=== PATIENT | female | born 1995 | race American Indian/Alaskan Native ===

== ENCOUNTER 2016-04-19 21:53 | Outpatient (CLI) | payer MEDICAID ==
[2016-04-19 22:24] VITALS: BP 119/70
[2016-04-19] MEDS ORDERED: LACTATED RINGERS 500 ML IV ONE (22:41)
--- NOTE | 2016-04-22 09:34 | Ultrasound Report ---
OB ULTRASOUND: TECHNIQUE: Transabdominal ultrasound with Doppler interrogation. Gestation: morales Position: Transverse Head Maternal LT. Amniotic Fluid: WNL (7-24 cm) JOSI = 13.0 cm Placenta: posterior Placental Grade: 0 Heart Rate: 160 BPM Cervical length: 3.7 cm (Normal > 3 cm) BPD: 7.0 cm = 28 w 1 d HC: 26.7 cm = 29 w 0 d AC: 23.8 cm = 28 w 0 d FL: 5.5 cm = 29 w 1 d HC/AC Ratio: 1.12 Estimated Weight: 1251 grams LMP: uncertain US Gest. Age = 28 w 4 d EDC: 07-08-17
== END 2016-04-19 23:45 | disposition home or self-care (01) ==
LOC: TRG 21:53
PROVIDERS: ATTEND Obstetrics & Gynecology Gynecology
DX: O47.03 False labor before 37 completed weeks of gestation, third trimester (principal); Z3A.28 28 weeks gestation of pregnancy
CPT/HCPCS: 59025; 76816

== ENCOUNTER 2016-07-03 10:12 | Inpatient (IN) | payer MEDICAID ==
[2016-07-03] MEDS ORDERED: LACTATED RINGERS 1,000 ML ONE ×2 (10:37→11:26)
[2016-07-03] MEDS ORDERED: PITOCin/NS 20 UNIT/1000ML DRIP 20,000 MILLIUNITS/1,000 ML BAG IV ONE (11:26)
[2016-07-03] MEDS ORDERED: XYLOCAINE 2% INFILTRATI ONE (11:36)
--- NOTE | 2016-07-03 12:09 | History and Physical Report ---
History of Present Illness Date of examination: 07/03/16 (pt presented to Triage with c/o ctx starting @ 0700) Date of admission: 07/03/16 11:28 History of present illness: EDC Calculations LMP: 07/05/2017 Initial exam (date): 01/25/2016 = 16 Exam: 07/06/2016 Past History : 1 Term Births: 0 Premature Births: 0 Living Children: 0 Para: 0 Mult. Births: 0 Prev : 0 Prev. attempt? 0 Aborta: 0 Elect. Ab: 0 Spont. Ab: 0 Ectopics: 0 Past Medical History: Negative Past Medical History Past Surgical History: Negative Past Surgical History Family History Summary: Other family member - Has No Family History of Ovarvian Cancer - Entered On: 12/2016 Other family member - Has No Family History of Colon Cancer - Entered On: 2016 Other family member - Has No Family History of Breast Cancer - Entered On: 2016 Other family member - Has Family History of Hypertension - Entered On: 06/05/2016 Social History: Patient is single Risk Factors: Smoked Tobacco Use: Never smoker Drug use: yes Substance: marijuana Alcohol use: no Dietary Counseling: pn yes Past Medical History Surgery (Non-checkman): Negative Past Surgical History Abnormal PAP: negative Uterine Anomaly: negative Social Hx: Patient is single Infection History Hx of STD: chlamydia Personal hx. of genital herpes: no Genetic History Congenital Heart Defect: Mom: no Dad: no Sarah Disease: Mom: no Dad: no Thalassemia Mom: no Dad: no Neural Tube Defect Mom: no Dad: no Down's Syndrome Mom: no Dad: no Ron-Sachs Mom: no Dad: no Sickle Cell Disease/Trait Mom: no Dad: no Hemophilia Mom: no Dad: no Muscular Dystrophy Mom: no Dad: no Cystic Fibrosis Mom: no Dad: no [place] Chorea Mom: no Dad: no Mental Retardation Mom: no Dad: no Fragile X Mom: no Dad: no Other Genetic/Chromosomal Disorder Mom: no Dad: no Child w/other defect Mom: no Dad: no Active Medications: VITAMINS TABS ( MV & MIN W/FE-FA TABS) Current Allergies (reviewed today): No known allergies Laboratory Results Date/Time Collected: 05/31/2016 Urine HCG: positive Review of Systems General Complains of fatigue. Denies fever, chills, sweats, anorexia, weakness, malaise, weight loss and sleep disorder. Complains of pelvic pain. Denies vaginal discharge, incontinence, dysuria, hematuria, urinary frequency, amenorrhea, menorrhagia, abnormal vaginal bleeding, genital sores, decreased libido, painful periods, painful sex, urinary urgency, hot flashes, vaginal dryness, vaginal itching and vaginal odor. CV Denies chest pains, palpitations, syncope, dyspnea on exertion, orthopnea, PND and peripheral edema. Resp Denies cough, dyspnea at rest, excessive sputum, hemoptysis, wheezing and pleurisy. GI Complains of abdominal pain. Denies nausea, vomiting, diarrhea, constipation, change in bowel habits, melena, hematochezia, jaundice, gas/bloating, indigestion/heartburn, dysphagia and odynophagia. Breast Denies left breast lump, right breast lump, nipple discharge, bloody discharge from nipple, breast pain, abnormal mammogram and breast enlargement. MS Complains of back pain. Psych Denies depression, anxiety, irritability and mood swings. PHYSICAL EXAM HEENT: normocephalic, no lesions or deformities Neck/Thyroid: supple, thyroid normal Skin no significant abnormal lesions or rashes Chest: respiratory effort normal, clear to auscultation Breasts: skin/areolae normal, no masses, no nipple discharge, no erythema/warmth /tenderness, and axillae normal. CV: regular, normal S1-S2, no murmur, no rub, no gallop Abdomen: normal bowel sounds, soft, nontender, no HSM Musculoskeletal: grossly normal ROM in joints, no joint tenderness or muscle weakness Neuro: no gross anomalities Extremities: no clubbing, cyanosis, or edema Past History - Obstetrical History Expected Date of Delivery: 07/05/16 Actual Gestation: 39 Week(s) 5 Day(s) : 1 Para: 0 Hx # Term Pregnancies: 0 Number of Living Children: 0 Medications and Allergies Allergies Allergy/AdvReac Type Severity Reaction Status Date / Time No Known Allergies Allergy Verified 07/03/16 10:20 Home Medications Medication Instructions Recorded Confirmed Last Taken Type No Known Home Medications [No 07/03/16 07/03/16 Unknown History Reported Home Medications] - Vital Signs Vital signs: Vital Signs Pulse Pulse Ox 105 H 100 07/03/16 10:19 07/03/16 10:19 Temp Pulse Resp BP Pulse Ox 97.5 F L 73 20 174/82 98 07/03/16 11:40 07/03/16 11:58 07/03/16 10:27 07/03/16 11:58 07/03/16 11:34 - Physical Exam Breasts: Positive: deferred Cardiovascular: Regular rate, Normal S1, Normal S2 Lungs: Positive: Normal air movement Abdomen: Positive: normal appearance, soft, normal bowel sounds. Negative: distention, tenderness Genitourinary (Female): Positive: normal external genitalia Vulva: both: normal Vagina: Positive: normal moisture. Negative: discharge Cervix: Negative: lesion, discharge Uterus: Positive: normal size, normal contour Adnexa: both: normal Anus/Rectum: Positive: normal perianal skin, heme negative. Negative: rectal mass, hemorrhoids Extremities: Positive: normal Deep Tendon Reflex Grade: Normal +2 - Obstetrical FHR: category 2 Uterine Contraction Monitor Mode: External Cervical Dilatation: 2 (on arrival to Triage) Uterine Contraction Pattern: Regular Uterine Contraction Intensity: Moderate (pt out of control) Results All other labs normal. Laboratory Data-Patient Name: JUAN HEATON Test Date Result Blood Type 12/25/2015 B Rh 12/25/2015 positive Antibody Screen negative Rubella 12/25/2015 IMMUNE Serology (RPR) 06/12/2016 NR HBsAg Negative Hemoglobin 12/25/2015 11.1 Hematocrit Platelets Chlamydia DNA 06/04/2016 Negative GC DNA/Culture 06/04/2016 Urine Culture Group B Strep cult negative PAP HIV 06/12/2016 AFP/Quad Screen Glucola Test 3hr GTT (Fasting) 1 hr 2 hr 3 hr [facility]-Patient Name:JUAN HEATON Test Date Result Varicella Ab Sickle Cell 12/25/2015 negative PPD Fibronectin Cystic Fibrosis Parvovirus TSH Free T4 Hepatitis C ALT AST Uric Acid Creatinine 24 hr Urine Protein APURVA Assessment and Plan SVE 2 on arrival with in 1 hour pt's exam 9,100,0 Orders in EMR
[2016-07-03] MEDS ORDERED: ePHEDrine SULFATE IV PRN (12:19)
[2016-07-03] MEDS ORDERED: MINERAL OIL PO PRN (12:19)
--- NOTE | 2016-07-03 12:19 | Procedure Note ---
OB Delivery Note - Delivery Date of Delivery: 07/03/16 Clinical Nurse Occupational Medicine: JENI ALFREDO Estimated blood loss: 300cc - Vaginal Delivery presentation: vertex Delivery position: OA Intrapartum events: meconium, precipitous labor- <3hr, mult.variable deceleratio Delivery induction: none Delivery monitor: external FHT, external uterine Route of delivery: Delivery placenta: spontaneous Delivery cord: nuchal cord (X 2 reduced) Episiotomy: none Delivery laceration: none Anesthesia: none Delivery comments: Called urgently to LDR Pt SVE 9,100,0 Arrived with pt having the urge to push. Noted thick meconium, NICU called to room. Straight cath done Specimen to lab live born male CAN X 2 reduced, to warmer. NICU waiting. Cord blood obtained. Placenta and membrane del complete and intact, 3 vessel cord. Placenta to pathology. 8/9, EBL 300, Wgt 5-8 Pit IVFs. Mom and baby remain LDR stable - A at 1 minute: 8 (wgt 5-8) at 5 minutes: 9 Infant Gender: Male (wgt)
--- NOTE | 2016-07-03 12:19 | Ultrasound Report ---
LIMITED OB ULTRASOUND: Gestation: morales Position: cephalic Placenta: lt. lat. Placental Grade: 2 Heart Rate: 120 BPM No evidence of retro-or intraplacental hemorrhage. Estimated gestational age is 39 weeks 5 days.
[2016-07-03 12:23] LABS: Urine Drugs of Abuse Note Disclamer
[2016-07-03] MEDS ORDERED: PHENERGAN PO PRN (12:29)
[2016-07-03] MEDS ORDERED: DULCOLAX PR PRN (12:29)
[2016-07-03] MEDS ORDERED: TYLENOL PO PRN (12:29)
[2016-07-03] MEDS ORDERED: LANSINOH TP PRN (12:29)
[2016-07-03] MEDS ORDERED: MILK OF MAGNESIA PO PRN (12:29)
[2016-07-03] MEDS ORDERED: BENADRYL PO PRN (12:29)
[2016-07-03] MEDS ORDERED: ZOFRAN IV PRN (12:29)
[2016-07-03] MEDS ORDERED: TUCKS PAD TP PRN (12:29)
[2016-07-03] MEDS ORDERED: DERMOPLAST TP PRN (12:35)
[2016-07-03] MEDS: MOTRIN PO SCH ×3 (12:58→23:48)
[2016-07-03] MEDS ORDERED: LACTATED RINGERS 1,000 ML IV SCH (13:00)
[2016-07-03] MEDS ORDERED: SODIUM CHLORIDE FLUSH SYRINGE 10 ML IV SCH (13:00)
[2016-07-03] MEDS ORDERED: PITOCin/NS 20 UNIT/1000ML DRIP 20 UNITS/1,000 ML BAG IV SCH (13:00)
[2016-07-03 13:51] LABS: Hematocrit 32.8 % (30.3-42.9); Hemoglobin 10.6 gm/dl (10.1-14.3); Mean Corpuscular HGB Conc 32 % (30-34); Mean Corpuscular Hemoglobin 26 pg (28-32); Mean Corpuscular Volume 80 fl (79-97); Platelet Count 245 K/mm3 (140-440); Red Blood Count 4.09 M/mm3 (3.65-5.03); Red Cell Distribution Width 15.9 % (13.2-15.2); White Blood Count 10.3 K/mm3 (4.5-11.0)
[2016-07-03 15:15] LABS: Bilirubin,Urine NEG (Negative); Blood,Urine MOD (Negative); Ketones,Urine NEG (Negative); Leukocyte Esterase,Urine TR (Negative); Mucus,Urine FEW /HPF; Nitrite,Urine NEG (Negative)
[2016-07-03 15:16] LABS: RBC,Urine > 182.0 /HPF (0.0-6.0)
[2016-07-03 15:29] LABS: Alanine Aminotransferase 15 units/L (7-56); Lactate Dehydrogenase 255 units/L (91-180); Uric Acid 5.2 mg/dL (3.5-7.6)
[2016-07-03] MEDS ORDERED: NORCO 5/325 PO PRN (20:06)
[2016-07-03] MEDS: COLACE PO SCH (22:09)
[2016-07-04 01:09] LABS: Hematocrit 26.6 % (30.3-42.9); Hemoglobin 8.7 gm/dl (10.1-14.3)
[2016-07-04] MEDS ORDERED: BOOSTRIX IM ONE (06:00)
[2016-07-04] MEDS: MOTRIN PO SCH ×3 (06:05→19:01)
--- NOTE | 2016-07-04 07:47 | Progress Note ---
Assessment and Plan - Patient Problems (1) Spontaneous vaginal delivery Onset Date: 07/03/16 Current Visit: Yes Status: Acute Plan to address problem: pt resting quietly No c/o voiced VSS BP 140/80 FF below umb Lochia small Perineum intact H&H 10/19 Pt is asymptomatic Drop r/t blood loss from delivery. Will start po iron. Doing well s/p vag delivery P: continue pathway Observe BP Pt encouraged to report any LEA, blurred vision, chest pain. Subjective - Subjective Date of service: 07/04/16 (pt w/o complaint ) Principal diagnosis: DAy # 1 vaginal delivery Interval history: EDC Calculations LMP: 07/05/2017 Initial exam (date): 01/25/2016 = 16 Exam: 07/06/2016 Past History : 1 Term Births: 0 Premature Births: 0 Living Children: 0 Para: 0 Mult. Births: 0 Prev : 0 Prev. attempt? 0 Aborta: 0 Elect. Ab: 0 Spont. Ab: 0 Ectopics: 0 Past Medical History: Negative Past Medical History Past Surgical History: Negative Past Surgical History Family History Summary: Other family member - Has No Family History of Ovarvian Cancer - Entered On: 12/2016 Other family member - Has No Family History of Colon Cancer - Entered On: 2016 Other family member - Has No Family History of Breast Cancer - Entered On: 2016 Other family member - Has Family History of Hypertension - Entered On: 06/05/2016 Social History: Patient is single Risk Factors: Smoked Tobacco Use: Never smoker Drug use: yes Substance: marijuana Alcohol use: no Dietary Counseling: pn yes Past Medical History Surgery (Non-fisheries management biologist): Negative Past Surgical History Abnormal PAP: negative Uterine Anomaly: negative Social Hx: Patient is single Infection History Hx of STD: chlamydia Personal hx. of genital herpes: no Genetic History Congenital Heart Defect: Mom: no Dad: no Sarah Disease: Mom: no Dad: no Thalassemia Mom: no Dad: no Neural Tube Defect Mom: no Dad: no Down's Syndrome Mom: no Dad: no Ron-Sachs Mom: no Dad: no Sickle Cell Disease/Trait Mom: no Dad: no Hemophilia Mom: no Dad: no Muscular Dystrophy Mom: no Dad: no Cystic Fibrosis Mom: no Dad: no [place] Chorea Mom: no Dad: no Mental Retardation Mom: no Dad: no Fragile X Mom: no Dad: no Other Genetic/Chromosomal Disorder Mom: no Dad: no Child w/other defect Mom: no Dad: no Active Medications: VITAMINS TABS ( MV & MIN W/FE-FA TABS) Current Allergies (reviewed today): No known allergies Laboratory Results Date/Time Collected: 05/31/2016 Urine HCG: positive Review of Systems General Complains of fatigue. Denies fever, chills, sweats, anorexia, weakness, malaise, weight loss and sleep disorder. Complains of pelvic pain. Denies vaginal discharge, incontinence, dysuria, hematuria, urinary frequency, amenorrhea, menorrhagia, abnormal vaginal bleeding, genital sores, decreased libido, painful periods, painful sex, urinary urgency, hot flashes, vaginal dryness, vaginal itching and vaginal odor. CV Denies chest pains, palpitations, syncope, dyspnea on exertion, orthopnea, PND and peripheral edema. Resp Denies cough, dyspnea at rest, excessive sputum, hemoptysis, wheezing and pleurisy. GI Complains of abdominal pain. Denies nausea, vomiting, diarrhea, constipation, change in bowel habits, melena, hematochezia, jaundice, gas/bloating, indigestion/heartburn, dysphagia and odynophagia. Breast Denies left breast lump, right breast lump, nipple discharge, bloody discharge from nipple, breast pain, abnormal mammogram and breast enlargement. MS Complains of back pain. Psych Denies depression, anxiety, irritability and mood swings. PHYSICAL EXAM HEENT: normocephalic, no lesions or deformities Neck/Thyroid: supple, thyroid normal Skin no significant abnormal lesions or rashes Chest: respiratory effort normal, clear to auscultation Breasts: skin/areolae normal, no masses, no nipple discharge, no erythema/warmth /tenderness, and axillae normal. CV: regular, normal S1-S2, no murmur, no rub, no gallop Abdomen: normal bowel sounds, soft, nontender, no HSM Musculoskeletal: grossly normal ROM in joints, no joint tenderness or muscle weakness Neuro: no gross anomalities Extremities: no clubbing, cyanosis, or edema Patient reports: appetite normal, voiding normally, pain well controlled, ambulating normally [place]: doing well Objective - Vital Signs Latest vital signs: Vital Signs Temp Pulse Pulse Pulse Resp BP BP 07/04/16 00:55 98.2 F 54 L 18 144/76 07/03/16 20:30 98.9 F 62 18 138/67 07/03/16 16:38 98.2 F 74 18 130/82 07/03/16 14:25 99.4 F 62 18 141/76 07/03/16 13:42 98.6 F 07/03/16 13:13 61 152/77 07/03/16 12:58 63 18 160/85 07/03/16 12:43 62 158/83 07/03/16 12:28 131/74 07/03/16 12:26 119/77 07/03/16 12:19 81 119/77 07/03/16 11:58 73 174/82 07/03/16 11:44 58 L 164/77 07/03/16 11:42 52 L 146/91 07/03/16 11:40 97.5 F L 07/03/16 11:34 78 07/03/16 11:29 78 07/03/16 11:27 93 H 07/03/16 11:24 71 07/03/16 11:20 83 07/03/16 11:19 98 H 07/03/16 10:44 61 07/03/16 10:39 73 07/03/16 10:36 64 155/86 07/03/16 10:34 103 H 07/03/16 10:29 79 07/03/16 10:27 97.6 F 66 20 147/87 07/03/16 10:24 65 07/03/16 10:23 66 07/03/16 10:19 105 H Pulse Ox 07/04/16 00:55 07/03/16 20:30 07/03/16 16:38 07/03/16 14:25 07/03/16 13:42 07/03/16 13:13 07/03/16 12:58 07/03/16 12:43 07/03/16 12:28 07/03/16 12:26 07/03/16 12:19 07/03/16 11:58 07/03/16 11:44 07/03/16 11:42 07/03/16 11:40 07/03/16 11:34 98 07/03/16 11:29 97 07/03/16 11:27 82 L 07/03/16 11:24 100 07/03/16 11:20 93 07/03/16 11:19 96 07/03/16 10:44 100 07/03/16 10:39 100 07/03/16 10:36 07/03/16 10:34 86 07/03/16 10:29 100 07/03/16 10:27 07/03/16 10:24 100 07/03/16 10:23 69 L 07/03/16 10:19 100 Intake and Output 07/03/16 07/04/16 07/04/16 22:59 06:59 14:59 Intake Total 600 Output Total 1500 Balance -900 Intake: Oral 600 Output: Urine 1500 Void 1500 Other: Total, Intake Amount 240 Total, Output Amount 800 # Voids Void 1 - Exam Breasts: Present: Cardiovascular: Present: Regular rate Lungs: Present: Normal air movement Abdomen: Present: normal appearance, soft Vulva: both: normal Uterus: Present: normal Extremities: Present: normal Deep Tendon Reflex Grade: Normal +2 Incision: Present: normal - Labs Labs: Abnormal lab results 07/03/16 07/03/16 07/04/16 Range/Units 11:00 11:00 00:51 Hgb 8.7 L (10.1-14.3) gm/dl Hct 26.6 L D (30.3-42.9) % MCH 26 L (28-32) pg RDW 15.9 H (13.2-15.2) % Creatinine 0.6 L (0.7-1.2) mg/dL Lactate Dehydrogenase 255 H (91-180) units/L
[2016-07-04] MEDS ORDERED: FEOSOL PO SCH (10:00)
[2016-07-04] MEDS ORDERED: PRENATAL VITAMIN PO SCH (10:00)
[2016-07-04] MEDS ORDERED: M-M-R II VACCINE SUB-Q ONE (12:29)
[2016-07-04] MEDS: COLACE PO SCH ×2 (14:44→22:01)
[2016-07-05 10:34] VITALS: BP 141/84
--- NOTE | 2016-07-05 10:46 | Progress Note ---
Assessment and Plan Patient doing well, desires d/c home this morning. Lochia scant, breast feeding without difficulty, VSSAF, H&H stable without s/s anemia. plan for routine f/u in office. - Patient Problems (1) Spontaneous vaginal delivery Onset Date: 07/03/16 Current Visit: Yes Status: Acute Subjective - Subjective Date of service: 07/05/16 Principal diagnosis: DAy # 2 vaginal delivery Patient reports: appetite normal, voiding normally, pain well controlled, ambulating normally, no dizzy ambulation, no nauseated [place]: doing well, nursing well Objective - Vital Signs Latest vital signs: Vital Signs Temp Pulse Resp BP 07/05/16 08:55 98 F 69 18 141/84 07/05/16 00:00 98.4 F 76 18 128/72 07/04/16 15:57 98.4 F 80 18 117/62 Intake and Output 07/04/16 07/05/16 07/05/16 22:59 06:59 14:59 Intake Total 240 Balance 240 Intake: Oral 240 Other: Total, Intake Amount 240 # Voids Void 1 1 - Exam Breasts: Present: normal Cardiovascular: Present: Regular rate Lungs: Present: Clear to auscultation, Normal air movement Abdomen: Present: normal appearance, soft Vulva: both: normal Uterus: Present: normal, firm, fundal height at umbilicus Extremities: Present: normal Deep Tendon Reflex Grade: Normal +2
--- NOTE | 2016-07-05 10:50 | Discharge Summary ---
Providers - Providers Date of Admission: 07/03/16 11:28 Date of discharge: 07/05/16 (desires d/c home today) Attending physician: OCHOA CHACKO Primary care physician: PROGRAM ASSISTANT Hospitalization Reason for admission: active labor Delivery: Episiotomy: none Laceration: none Other procedures: none complications: none Discharge diagnosis: IUP at term delivered [place] baby: male Hospital course: uncomplicated vaginal Condition at discharge: Good Disposition: DISCHARGED TO HOME OR SELFCARE - Discharge Diagnoses (1) Spontaneous vaginal delivery Status: Acute Plan - Provider Discharge Summary Activity: routine, no sex for 6 weeks, no heavy lifting 4 weeks, no strenuous exercise Diet: routine Instructions: routine Additional instructions: [] Smoking cessation referral if applicable(refer to patient education folder for contact #) [] Refer to [facility] Booklet Call your doctor immediately for: * Fever > 100.5 * Heavy vaginal bleeding ( >1 pad per hour) * Severe persistent headache * Shortness of breath * Reddened, hot, painful area to leg or breast * Drainage or odor from incision. * Keep incision clean and dry at all times and follow doctor's instructions regarding bathing/showering - Follow up plan Follow up: PRIMARY CARE, [Primary Care Provider] - 7 Days OCHOA CHACKO MD [Staff Physician] - 7 Days (Congratulations! Please call [phone] to schedule your son's circumcision in 1 week and your visit in 4 weeks. Bring EMLA cream to your son's appointment and await further instruction. Call for any questions or concerns.)
== END 2016-07-05 13:00 | disposition home or self-care (01) | DRG 775 ==
LOC: TRG 10:12 → LD 10:59 → TRG 11:27 → LD 11:28 → OB 14:43
PROVIDERS: ADMIT Obstetrics & Gynecology; ATTEND Obstetrics & Gynecology
PROC: 10E0XZZ Delivery of Products of Conception, External Approach (ICD-10-PCS; principal; 2016-07-03)
DX: O62.3 Precipitate labor (principal); O77.0 Labor and delivery complicated by meconium in amniotic fluid; O69.81X0 Labor and delivery complicated by cord around neck, without compression, not applicable or unspecified; O76 Abnormality in fetal heart rate and rhythm complicating labor and delivery; Z3A.39 39 weeks gestation of pregnancy; Z37.0 Single live birth; O99.320 Drug use complicating pregnancy, unspecified trimester; F12.90 Cannabis use, unspecified, uncomplicated
CPT/HCPCS: 36415; 76815; 80307; 81001; 82565; 83615; 84450; 84460; 84550; 85014; 85018; 85027; 86592; 86850; 86900; 86901; 88307; 99211; A6250; G0463; J2590; J7120